=== PATIENT | female | born 1935 | race Caucasian/White ===

== ENCOUNTER 2018-01-27 07:09 | Day surgery (SDC) | payer OTHER ==
[~2018-01-27 07:09] MED LIST: ALENDRONATE SOD10 MG PO; ANAFRANIL75 MG PO; GABAPENTIN800 MG PO; NABUMETONE750 MG PO; PRAVASTATIN SOD10 MG PO; TRAMADOL HCL50 MG PO
== END 2018-01-27 14:05 | disposition home or self-care (01) ==
LOC: CIR.AMB 07:09
DX: M47.816 Spondylosis without myelopathy or radiculopathy, lumbar region (principal); M47.817 Spondylosis without myelopathy or radiculopathy, lumbosacral region; M47.818 Spondylosis without myelopathy or radiculopathy, sacral and sacrococcygeal region